=== PATIENT | male | born 1965 ===

== ENCOUNTER 2020-03-22 08:15 | Inpatient (IN) | payer OTHER ==
[~2020-03-22] VITALS: Ht 175.3 cm; Wt 108.9 kg
[2020-04-01] MEDS ORDERED: PRILOSEC OTC20 MG PO (08:15)
[2020-04-01] MEDS ORDERED: NEURONTIN300 MG PO (08:15)
== END 2020-04-01 09:42 | disposition home or self-care (01) | DRG 329 ==
LOC: SURH 03-29 08:15 → O/R 03-29 09:17 → SURH 03-29 09:17
PROVIDERS: ADMIT Surgery; ATTEND Surgery
PROC: 0DBG4ZZ Excision of Left Large Intestine, Percutaneous Endoscopic Approach (ICD-10-PCS; principal; 2020-03-29 10:15)
DX: K57.20 Diverticulitis of large intestine with perforation and abscess without bleeding (principal); K65.0 Generalized (acute) peritonitis; I11.9 Hypertensive heart disease without heart failure; G47.33 Obstructive sleep apnea (adult) (pediatric)